=== PATIENT | male | born 1960 | race Native Hawaiian/Other Pacific Islander ===

== ENCOUNTER 2017-02-17 00:07 | Emergency (ER) | payer BC ==
[2017-02-17 00:29] VITALS: BP 118/66; PULSE 64; RESP 16; TEMP 98.2; O2SAT 100
[2017-02-17] MEDS ORDERED: Povidone Iodine Topical 10% Sol ONE (00:45)
[2017-02-17] MEDS ORDERED: Lidocaine 1% Inj (20ml) ONE (00:45)
--- NOTE | 2017-02-17 01:00 | ED PDOC ---
HPI: Wound Care - HPI Time Seen by Provider: 02/17/17 00:23 Chief Complaint (Nursing): Abnormal Skin Integrity Chief Complaint (Provider): laceratoin History Per: Patient Exam Limitations: no limitations Additional Complaint(s): 56yo M in ED with updated tetanus for laceration to right middle finger this AM via razor blade. admits t throbbing pain and bleeding, however bleeding is ow minimal no dec ROM of finger no finger swelling. Past Medical History Reviewed: Historical Data, Nursing Documentation, Vital Signs Vital Signs: Last Vital Signs Temp 98.2 F 02/17/17 00:15 Pulse 64 02/17/17 00:15 Resp 16 02/17/17 00:15 BP 118/66 02/17/17 00:15 Pulse Ox 100 02/17/17 00:15 - Medical History PMH: No Chronic Diseases - Family History Family History: States: No Known Family Hx - Allergies Allergies/Adverse Reactions: Allergies Allergy/AdvReac Type Severity Reaction Status Date / Time No Known Allergies Allergy Verified 02/17/17 00:48 Review of Systems ROS Statement: Except As Marked, All Systems Reviewed And Found Negative Musculoskeletal: Positive for: Hand Pain Physical Exam - Reviewed Nursing Documentation Reviewed: Yes Vital Signs Reviewed: Yes - Physical Exam Appears: Positive for: Well, Non-toxic, No Acute Distress Head Exam: Positive for: ATRAUMATIC, NORMAL INSPECTION, NORMOCEPHALIC Skin: Positive for: Normal Color, Warm Cardiovascular/Chest: Positive for: Regular Rate, Rhythm Respiratory: Positive for: CNT, Normal Breath Sounds Extremity: Positive for: Normal ROM, Other (right middle finger DIP with avulsion of skin. no active bleding no nail bed involvment. ) Neurologic/Psych: Positive for: Alert, Oriented - ECG O2 Sat by Pulse Oximetry: 100 Procedure: Wound Repair - Time Performed Time Performed: 01:00 - Time Out Time Out: Side verified, Site verified, Patient ID confirmed - Consent Obtained Consent obtained: Verbal - Performed by Performed by: Mid-level Provider - Indications Indication(s):: Avulsion - Location Finger:: Right, Middle Shape:: Curvilinear Depth:: Epidermis - Debris Debris:: None - Irrigated Irrigated with ml of normal saline: betadine and NS mix for cleaning. - Wound repair method [place]:: Tissue glue - Patient tolerated procedure Patient Tolerated Procedure:: Well Medical Decision Making Medical Decision Making: pt advised to not wet wound until 12-24 hours advised to keep clean no further ER workup is needed. no indication for xray at this time. Disposition - Clinical Impression Clinical Impression: Avulsion of skin of finger - Patient ED Disposition Is Patient to be Admitted: No Counseled Patient/Family Regarding: Diagnosis, Need For Followup - Disposition Disposition: Routine/Home Disposition Time: 01:01 Condition: GOOD Instructions: Skin Adhesive Care (ED)
== END 2017-02-17 01:35 | disposition home or self-care (01) ==
LOC: H.ER 00:07
DX: S61.212A Laceration without foreign body of right middle finger without damage to nail, initial encounter (principal); W26.8XXA Contact with other sharp object(s), not elsewhere classified, initial encounter; Y92.89 Other specified places as the place of occurrence of the external cause